=== PATIENT | female | born 1990 | race Caucasian/White ===

== ENCOUNTER → 2023-08-14 | Outpatient (CLI) | payer MEDICAID ==
[2023-08-14 10:55] LABS: Basophils # (auto) 0 10 ^3/uL (0-0.2); Basophils % (auto) 0.3 % (0.0-2.0); Eosinophils # (auto) 0.1 10 ^3/uL (0-0.8); Eosinophils % (auto) 0.7 % (0.0-7.0); Hematocrit 34.2 % (36.0-46.0); Hemoglobin 11.7 g/dL (12.2-16.2); Lymphocytes # (auto) 1.9 10 ^3/uL (0.4-5.4); Lymphocytes % (auto) 17.7 % (10.0-50.0); Mean Corpuscular Hemoglobin 30.3 pg (28.0-32.0); Mean Corpuscular Hgb Conc. 34.2 g/dL (32.0-36.0); Mean Corpuscular Volume 88.4 fL (80.0-100.0); Monocytes # (auto) 0.8 10 ^3/uL (0-1.3); Monocytes % (auto) 7.3 % (0.0-12.0); Nucleated Red Blood Cells % 0.1 %; Red Blood Cells 3.87 10^6/uL (4.0-5.20); Red Cell Distribution Width 12.4 % (11.8-14.3); White Blood Cell 10.8 10^3/uL (4.4-10.8)
[2023-08-15 07:06] LABS: RPR Non Reactive (Non Reactive)
[2023-08-15 20:06] LABS: Chlamydia Trachomatis, NAA Negative (Negative); Neisseria gonorrhoeae, NAA Negative (Negative)
== END | disposition home or self-care (01) ==
LOC: LAB 10:44
PROVIDERS: ATTEND Obstetrics & Gynecology
DX: Z34.80 Encounter for supervision of other normal pregnancy, unspecified trimester (principal); Z3A.00 Weeks of gestation of pregnancy not specified
CPT/HCPCS: 36415; 85025; 86592

== ENCOUNTER 2023-09-11 04:15 | Inpatient (IN) | payer MEDICAID ==
[2023-09-09 09:02] LABS: INR 0.93 (0.9-1.15); Partial Thromboplastin Time 28.7 SEC (24.5-34.5); Prothrombin Time 9.8 sec (9.3-11.8)
[2023-09-09 09:07] LABS: Alanine Aminotransferase 17 U/L (7-40); Albumin 3.8 g/dL (3.2-4.8); Alkaline Phosphatase 166 U/L (46-116); Anion Gap 7 (5-15); Aspartate Aminotransferase 23 U/L (13-40); BUN/Creatinine Ratio 8.1 (10.0-20.0); Blood Urea Nitrogen 5 mg/dL (9-23); Calcium 8.6 mg/dL (8.5-10.1); Carbon Dioxide 23 mmol/L (20-30); Chloride 108 mmol/L (98-107); Glucose 79 mg/dL (74-106); Potassium 3.8 mmol/L (3.5-5.1); Sodium 138 mmol/L (136-145)
[2023-09-09 09:08] LABS: Bilirubin, Total 0.4 mg/dL (0.2-1.0); Total Protein 6.8 g/dL (5.7-8.2)
[2023-09-09 09:08] LABS: Urine Bacteria FEW /hpf (None Seen); Urine Blood Negative /uL (Negative); Urine Clarity HAZY (Clear); Urine Color Yellow (Yellow); Urine Mucus FEW (None Seen); Urine Protein, UAD TRACE (Negative); Urine Specific Gravity 1.021 (1.001-1.035); Urine Urobilinogen Normal (Negative); Urine WBC 3 /hpf (0 - 5)
[2023-09-09 09:10] LABS: Basophils # (auto) 0 10 ^3/uL (0-0.2); Basophils % (auto) 0.3 % (0.0-2.0); Eosinophils # (auto) 0 10 ^3/uL (0-0.8); Eosinophils % (auto) 0.5 % (0.0-7.0); Hematocrit 34.8 % (36.0-46.0); Hemoglobin 11.7 g/dL (12.2-16.2); Lymphocytes # (auto) 1.6 10 ^3/uL (0.4-5.4); Lymphocytes % (auto) 20.3 % (10.0-50.0); Mean Corpuscular Hemoglobin 29.7 pg (28.0-32.0); Mean Corpuscular Hgb Conc. 33.6 g/dL (32.0-36.0); Mean Corpuscular Volume 88.2 fL (80.0-100.0); Monocytes # (auto) 0.6 10 ^3/uL (0-1.3); Monocytes % (auto) 7.6 % (0.0-12.0); Neutrophils # (auto) 5.7 10 ^3/uL (1.6-8.6); Neutrophils % (auto) 71.3 % (37.0-80.0); Red Blood Cells 3.95 10^6/uL (4.0-5.20); Red Cell Distribution Width 13.3 % (11.8-14.3); White Blood Cell 7.9 10^3/uL (4.4-10.8)
[2023-09-09 09:15] LABS: Amphetamine Screen, Urine Neg (NEGATIVE); Benzodiazephine Screen, Urine Neg (NEGATIVE)
[2023-09-09 09:16] LABS: Barbiturate Scree,Urine Neg (NEGATIVE); Cannabinoid Screen, Urine Pos (NEGATIVE); Cocaine Screen, Urine Neg (NEGATIVE); Opiate Scree,Urine Neg (NEGATIVE); Phencyclidine Screen, Urine Neg (NEGATIVE)
[2023-09-11] VITALS (18 sets, daily range): BP systolic 92–150; BP diastolic 52–93; PULSE 50–68; RESP 16–18; TEMP 97.7–98; O2SAT 97–100
[~2023-09-11] VITALS: Ht 172.7 cm; Wt 102.5 kg
[2023-09-11] MEDS ORDERED: ceFAZolin 1GM/50ML 50 ML IV ONE (04:45)
[2023-09-11] MEDS: LACTATED RINGER'S 1,000 ML IV SCH ×3 (05:38→20:45)
[2023-09-11] MEDS ORDERED: ceFAZolin 2 GM/D5W100ml 100 ML IV ONE (06:30)
[2023-09-11] MEDS ORDERED: ONDANSETRON HCL 4 MG/2 ML VIAL ONE (06:36)
[2023-09-11] MEDS ORDERED: DexAMETHasone SOD PHOS 10MG/1ML VIAL INJ ONE (06:36)
[2023-09-11] MEDS ORDERED: oxyTOCIN 10 UNIT/ML 10ML VIAL ONE (06:36)
[2023-09-11] MEDS ORDERED: fentaNYL CITRATE 100 MCG/2 ML VL ONE (06:37)
[2023-09-11] MEDS ORDERED: MORPHINE SULF PF 5 MG/10 ML VIAL ONE (06:37)
[2023-09-11] MEDS ORDERED: ceFAZolin 1GM/50ML 100 ML IV ONE (06:46)
[2023-09-11] MEDS ORDERED: ONDANSETRON HCL 4 MG/2 ML VIAL IV PRN ×2 (07:15→08:30)
[2023-09-11] MEDS ORDERED: ceFAZolin 1GM/50ML 50 ML IV SCH (07:15)
[2023-09-11] MEDS ORDERED: GUM (CHEWING) 1 GUM CHEW CHEW ONE (07:15)
[2023-09-11] MEDS ORDERED: LACT. RINGERS/OXYTOCIN 20UNITS 1,000 ML IV ONE (07:15)
[2023-09-11] MEDS ORDERED: ePHEDrine SULFATE 50 MG/ML AMP ONE (07:19)
[2023-09-11] MEDS ORDERED: CARBOPROST TROMETHAMINE 250 MCG/1ML VIAL IM ONE (07:34)
[2023-09-11] MEDS ORDERED: DOCU-94 PO (07:41)
[2023-09-11] MEDS ORDERED: HYDR-4902 PO (07:41)
[2023-09-11] MEDS ORDERED: diphenhdrAMINE HCL 50 MG/1 ML VL IV PRN (08:30)
[2023-09-11] MEDS ORDERED: HYDROmorphone HCL 2 MG/ML VL/or syr IV PRN (08:30)
[2023-09-11] MEDS ORDERED: NALBUPHINE HCL 10 MG/1ml INJECTION IV ONE (08:30)
[2023-09-11] MEDS ORDERED: NALOXONE HCL 0.4 MG/ML VIAL IV PRN (08:30)
[2023-09-11 11:06] LABS: RPR Non Reactive (Non Reactive)
[2023-09-11] MEDS: ACETAMINOPHEN IV 1000 MG/100ML (10MG/ML) IV PRN ×2 (15:16→22:54)
[2023-09-11] MEDS: ceFAZolin 1GM/50ML 50 ML IV SCH ×2 (15:24→23:45)
[2023-09-11 23:28] LABS: Basophils # (auto) 0 10 ^3/uL (0-0.2); Basophils % (auto) 0.1 % (0.0-2.0); Eosinophils # (auto) 0 10 ^3/uL (0-0.8); Eosinophils % (auto) 0.1 % (0.0-7.0); Hematocrit 29.9 % (36.0-46.0); Hemoglobin 9.8 g/dL (12.2-16.2); Lymphocytes # (auto) 1.8 10 ^3/uL (0.4-5.4); Lymphocytes % (auto) 12.5 % (10.0-50.0); Mean Corpuscular Hemoglobin 29.1 pg (28.0-32.0); Mean Corpuscular Hgb Conc. 32.7 g/dL (32.0-36.0); Mean Corpuscular Volume 88.9 fL (80.0-100.0); Monocytes # (auto) 1.3 10 ^3/uL (0-1.3); Monocytes % (auto) 9.3 % (0.0-12.0); Red Blood Cells 3.36 10^6/uL (4.0-5.20); Red Cell Distribution Width 13.5 % (11.8-14.3); White Blood Cell 14.1 10^3/uL (4.4-10.8)
[2023-09-12] VITALS (9 sets, daily range): BP systolic 98–118; BP diastolic 51–73; PULSE 51–83; RESP 16–18; TEMP 97.1–98.3; O2SAT 96–99
[2023-09-12 06:48] LABS: Basophils # (auto) 0 10 ^3/uL (0-0.2); Basophils % (auto) 0.2 % (0.0-2.0); Eosinophils # (auto) 0 10 ^3/uL (0-0.8); Eosinophils % (auto) 0.2 % (0.0-7.0); Hematocrit 29.5 % (36.0-46.0); Lymphocytes # (auto) 1.9 10 ^3/uL (0.4-5.4); Lymphocytes % (auto) 18.4 % (10.0-50.0); Mean Corpuscular Hemoglobin 30.3 pg (28.0-32.0); Mean Corpuscular Volume 89.2 fL (80.0-100.0); Monocytes % (auto) 9.2 % (0.0-12.0); Neutrophils # (auto) 7.6 10 ^3/uL (1.6-8.6); Red Blood Cells 3.31 10^6/uL (4.0-5.20); Red Cell Distribution Width 13.3 % (11.8-14.3); White Blood Cell 10.5 10^3/uL (4.4-10.8)
[2023-09-12] MEDS: ceFAZolin 1GM/50ML 50 ML IV SCH (07:09)
[2023-09-12] MEDS ORDERED: HYDROcodone-ACET 5/325MG TAB PO PRN ×2 (08:15)
[2023-09-12] MEDS ORDERED: BISACODYL 10 MG RECT SUPP PR PRN (08:15)
[2023-09-12] MEDS ORDERED: DOCUSATE CALCIUM 240 MG CAP PO SCH (10:00)
[2023-09-12] MEDS: DOCUSATE SOD 100 MG CAP PO SCH ×2 (10:09→22:00)
[2023-09-12] MEDS: FERROUS SULFATE 325mg EC TAB PO SCH ×2 (10:09→22:00)
[2023-09-12] MEDS: IBUPROFEN 800 MG TAB PO PRN ×2 (12:28→22:04)
[2023-09-12] MEDS: SIMETHICONE 80 MG CHEWABLE TABLET PO SCH ×3 (12:29→22:00)
[2023-09-13 03:00] VITALS: BP 101/63; PULSE 63; RESP 16; TEMP 98.2; O2SAT 95
[2023-09-13] MEDS: SIMETHICONE 80 MG CHEWABLE TABLET PO SCH (05:28)
[2023-09-13 07:00] VITALS: BP 127/78; PULSE 69; RESP 16; TEMP 98.5; O2SAT 98
[2023-09-13 11:00] VITALS: BP 137/67; PULSE 73; RESP 16; TEMP 98.1; O2SAT 97
[2023-09-13 19:06] LABS: Treponema pallidum Ab (FTA-Ab) Non Reactive (Non Reactive)
== END 2023-09-13 14:47 | disposition home or self-care (01) | DRG 540 ==
LOC: LDRP 04:15
PROVIDERS: ADMIT Obstetrics & Gynecology; ATTEND Obstetrics & Gynecology
PROC: 10D00Z1 Extraction of Products of Conception, Low, Open Approach (ICD-10-PCS; principal; 2023-09-11 07:07)
DX: O34.211 Maternal care for low transverse scar from previous cesarean delivery (principal); Z37.0 Single live birth; Z3A.39 39 weeks gestation of pregnancy
CPT/HCPCS: 36415; 59025; 80053; 80307; 81001; 85025; 85610; 85730; 86592; 86850; 86900; 86901; 94760; 94762; 96360; 96361; 96365; 96366; G0378; J0131; J0690; J1100; J2405; J2590